=== PATIENT | male | born 1990 | race African-American/Black ===

== ENCOUNTER 2018-04-04 10:40 | Observation (INO) | payer MEDICAID ==
[~2018-04-04] VITALS: Ht 188 cm; Wt 77.1 kg
[2018-04-04 11:36] LABS: Basophils # (auto) 0 uL; Basophils % (auto) 0.6 % (0.0-2.0); Eosinophils # (auto) 0 uL; Eosinophils % (auto) 0.9 % (0.0-7.0); Hematocrit 43.5 % (41.0-53.0); Hemoglobin 14.7 g/dL (13.5-17.5); Lymphocytes # (auto) 1.7 uL; Lymphocytes % (auto) 33.1 % (10.0-50.0); Mean Corpuscular Hemoglobin 27.9 pg (28.0-32.0); Mean Corpuscular Hgb Conc. 33.8 g/dL (32.0-36.0); Mean Corpuscular Volume 82.5 fL (80.0-100.0); Monocytes # (auto) 0.5 uL; Monocytes % (auto) 9.2 % (0.0-12.0); Neutrophils # (auto) 2.9 uL; Neutrophils % (auto) 56.2 % (37.0-80.0); Nucleated Red Blood Cells % 0.2 %; Platelet Count (auto) 261 10^3/uL (140-450); Red Blood Cells 5.26 10^6/uL (4.5-5.90); Red Cell Distribution Width 13.8 % (11.8-14.3); White Blood Cell 5.1 10^3/uL (4.4-10.8)
[2018-04-04 11:51] LABS: Albumin 3.7 g/dL (3.4-5.0); BUN/Creatinine Ratio 15.6; Bilirubin, Total 0.1 mg/dL (0.2-1.0); Calcium 9.2 mg/dL (8.5-10.1); Potassium 4.5 mmol/L (3.5-5.1); Total Protein 8.3 g/dL (6.4-8.2)
[2018-04-04 12:20] LABS: Urine Bacteria FEW /hpf (None Seen); Urine Blood Negative /uL (Negative); Urine Mucus FEW (None Seen); Urine Specific Gravity 1.033 (1.001-1.035); Urine WBC 1 /hpf (0 - 3)
[2018-04-04 12:51] LABS: Magnesium 2.3 mg/dL (1.6-2.6)
[2018-04-04 14:00] VITALS: BP 129/75
== END 2018-04-04 14:43 | disposition home or self-care (01) | DRG 251 ==
LOC: ER 10:40 → OVERFLOW 11:55 → ER 14:43
PROVIDERS: ADMIT Family Medicine; ATTEND Family Medicine
DX: R10.9 Unspecified abdominal pain (principal); K52.9 Noninfective gastroenteritis and colitis, unspecified; K59.00 Constipation, unspecified
CPT/HCPCS: 36415; 71045; 74176; 80053; 81001; 82150; 83690; 83735; 85025; 99285; G0378

== ENCOUNTER 2018-08-17 14:55 | Emergency (ER) | payer MEDICAID, OTHER ==
[~2018-08-17] VITALS: Ht 188 cm; Wt 78.9 kg
[2018-08-17 15:00] VITALS: BP 109/76
[2018-08-17] MEDS ORDERED: cefTRIAXone SOD 1,000 MG VL IM ONE (17:00)
== END 2018-08-17 17:07 | disposition home or self-care (01) ==
LOC: ER 15:02
DX: K02.9 Dental caries, unspecified (principal); Z20.2 Contact with and (suspected) exposure to infections with a predominantly sexual mode of transmission; Z21 Asymptomatic human immunodeficiency virus [HIV] infection status
CPT/HCPCS: 96372; 99283; J0696